=== PATIENT | male | born 1980 | race Hispanic/Latino ===

== ENCOUNTER 2018-02-22 13:37 | Inpatient (IN) | payer BC ==
--- NOTE | 2018-02-22 15:00 | History and Physical Report ---
History of Present Illness Date of admission: 02/22/18 14:08 Chief complaint: I keep shaking, I feel terrible History of present illness: 37 YO Male with HTN, ETOH Withdrawl, Depression, Anxiety admitted directly to hospital medicine service for ETOH Withdrawl, and Benzodiazepine Withdrawl. Pt states that he has been binge drinking Vodka for the past 3 days with his last drink of ETOH was this morning. Pt also takes xanax repeatedly during his drinking binges. Pt states that his last dose of xanax was 2 days ago. Pt states that he has experienced the following symptoms for the past 1 day with worsening symptoms over the past 6 hours: subjective fever, shaky hands, tremors , sweating, restlessness, irritability, insomnia, headache, confusion, muscle stiffness, agitation, nausea, poor concentration, and feeling depressed. Pt seen and evaluated upon arrival and found to have symptoms consistent with ETOH Withdrawl, and Benzodiazepine Withdrawl. Pt admitted to medical floor for medical stabilization. Past History Past Medical History: hypertension, hyperlipidemia Past Surgical History: Other (Sinus surgery, panniculectomy) Social history: single, alcohol abuse. denies: smoking Family history: hypertension Medications and Allergies Allergies Allergy/AdvReac Type Severity Reaction Status Date / Time No Known Allergies Allergy Unverified 02/22/18 13:40 Review of Systems Constitutional: fever, poor appetite, daytime sleepiness, no weight loss, no weight gain Ears, nose, mouth and throat: no ear pain, no ear discharge, no tinnitis, no decreased hearing, no nose pain, no nasal congestion, no nasal discharge Cardiovascular: no chest pain, no orthopnea, no palpitations, no rapid/ irregular heart beat, no edema, no syncope Respiratory: no cough, no cough with sputum, no excessive sputum, no hemoptysis , no shortness of breath, no dyspnea on exertion Gastrointestinal: nausea, no abdominal pain, no diarrhea, no constipation, no change in bowel habits, no hematemesis, no BRBPR, no melena Genitourinary Male: no dysuria, no flank pain, no discharge, no urinary frequency, no urinary hesitancy Rectal: no pain, no incontinence, no bleeding Musculoskeletal: no neck stiffness, no neck pain, no shooting arm pain, no arm numbness/tingling, no low back pain, no shooting leg pain, no leg numbness/ tingling Integumentary: no rash, no pruritis, no redness, no sores, no wounds, no jaundice Neurological: no head injury, no transient paralysis, no paralysis, no parathesias, no numbness, no tingling, no seizures Psychiatric: anxiety, change in sleep habits, sleep disturbances, insomnia, change in appetite, change in libido, depression, hopelessness, anxiety attacks , difficulties concentrating, confusion, irritability, sadness/tearfullness, mood swings, no memory loss Endocrine: no cold intolerance, no heat intolerance, no polyphagia, no excessive thirst, no polydipsia, no polyuria, no nocturia Hematologic/Lymphatic: no easy bruising, no easy bleeding Allergic/Immunologic: no urticaria, no allergic rhinitis, no wheezing, no persistent infections, no anaphylaxis, no angioedema Exam - Constitutional Vitals: Temp Pulse Resp BP Pulse Ox 98.7 F 113 H 20 126/76 94 02/22/18 14:21 02/22/18 14:21 02/22/18 14:21 02/22/18 14:21 02/22/18 14:21 General appearance: Present: mild distress, disheveled - EENT Eyes: Present: PERRL, miosis ENT: hearing intact, clear oral mucosa - Neck Neck: Present: supple, normal ROM - Respiratory Respiratory effort: normal Respiratory: bilateral: CTA - Cardiovascular Rhythm: other (tachycardia) Heart Sounds: Present: S1 & S2. Absent: rub, click - Extremities Extremities: pulses symmetrical, No edema Peripheral Pulses: within normal limits - Abdominal General gastrointestinal: Present: soft, non-tender, non-distended, normal bowel sounds Male genitourinary: Present: normal - Integumentary Integumentary: Present: clear, warm, dry - Musculoskeletal Musculoskeletal: generalized weakness - Psychiatric Psychiatric: appropriate mood/affect, intact judgment & insight, agitated, depressed - Neurologic Neurologic: CNII-XII intact, moves all extremities Assessment and Plan - Patient Problems (1) Alcohol withdrawal Current Visit: Yes Status: Acute Qualifiers: Complication of substance-induced condition: with perceptual disturbance Qualified Code(s): F10.232 - Alcohol dependence with withdrawal with perceptual disturbance Plan to address problem: thiamine, Folic Acid, Multivitamin, seizure precautions, supportive care, IVF resuscitation, CBC, CMP, Urinalysis, ETOH level, Urine Drug screen. (2) Benzodiazepine withdrawal with perceptual disturbance Current Visit: Yes Status: Acute Plan to address problem: Librium therapy, neuro checks, supportive care. (3) HTN (hypertension) Current Visit: Yes Status: Acute Qualifiers: Hypertension type: essential hypertension Qualified Code(s): I10 - Essential (primary) hypertension Plan to address problem: monitor bp q shift, supportive care. (4) Depressed bipolar disorder Current Visit: Yes Status: Acute Plan to address problem: Psychiatry consulted. continue current care. (5) DVT prophylaxis Current Visit: Yes Status: Acute Plan to address problem: SCD to BLE
[2018-02-22] MEDS ORDERED: ZOFRAN IV PRN (15:22)
[2018-02-22] MEDS: ATIVAN IV PRN ×4 (15:33→23:42)
[2018-02-22] MEDS: LIBRIUM PO SCH ×2 (15:33→21:41)
[2018-02-22 15:55] LABS: Basophils # (Auto) 0.1 K/mm3 (0.0-0.1); Basophils % (Auto) 1.3 % (0.0-1.8); Eosinophils % (Auto) 0.5 % (0.0-4.3); Hematocrit 46.7 % (35.5-45.6); Hemoglobin 15.9 gm/dl (11.8-15.2); Lymphocytes # (Auto) 2.9 K/mm3 (1.2-5.4); Lymphocytes % (Auto) 36.2 % (13.4-35.0); Mean Corpuscular HGB Conc 34 % (32-34); Mean Corpuscular Hemoglobin 30 pg (28-32); Mean Corpuscular Volume 87 fl (84-94); Monocytes # (Auto) 0.9 K/mm3 (0.0-0.8); Monocytes % (Auto) 11.3 % (0.0-7.3); Platelet Count 351 K/mm3 (140-440); Red Blood Count 5.35 M/mm3 (3.65-5.03); Red Cell Distribution Width 14.5 % (13.2-15.2)
[2018-02-22 16:06] LABS: INR 0.88 (0.87-1.13)
[2018-02-22 16:08] LABS: Lipase 69 units/L (13-60)
[2018-02-22 16:24] LABS: Alanine Aminotransferase 70 units/L (7-56); Albumin 4.4 g/dL (3.9-5); BUN/Creatinine Ratio 10; Blood Urea Nitrogen 10 mg/dL (9-20); Calcium 8.9 mg/dL (8.4-10.2); Hemolysis Index 10
[2018-02-22] MEDS ORDERED: ALUM-MAG HYDROX-SIMETH 200-200-20MG/5ML PO PRN (16:24)
[2018-02-22] MEDS ORDERED: SENOKOT PO PRN (16:24)
[2018-02-22] MEDS ORDERED: VITAMIN B-1 100 MG, FOLVITE 1 MG, INFUVITE 10 ML in NACL 0.9% 1000 ML 1,000 ML IV ONE (17:00)
[2018-02-22] MEDS: NEURONTIN PO SCH ×2 (17:04→21:41)
[2018-02-22 22:01] LABS: Bilirubin,Urine NEG (Negative); Blood,Urine NEG (Negative); Color,Urine Yellow (Yellow); Protein,Urine <15 mg/dL mg/dL (Negative)
[2018-02-22 22:18] LABS: Amphetamine Screen,Urine PRESUMPTIVE NEGATIVE; Benzodiazepines Screen,Urine PRESUMPTIVE NEGATIVE; Cannabinoid Screen,Urine PRESUMPTIVE NEGATIVE; Cocaine Screen,Urine PRESUMPTIVE NEGATIVE; Methadone Screen,Urine PRESUMPTIVE NEGATIVE; Opiate Screen,Urine PRESUMPTIVE NEGATIVE
[2018-02-23] MEDS: DESYREL PO SCH ×4 (02:21→23:26)
[2018-02-23] MEDS: LIBRIUM PO SCH ×3 (03:08→17:35)
[2018-02-23] MEDS: ATIVAN IV PRN ×8 (03:54→20:47)
[2018-02-23] MEDS: NEURONTIN PO SCH ×3 (06:31→22:30)
[2018-02-23] MEDS ORDERED: FOLVITE PO SCH (10:00)
[2018-02-23] MEDS ORDERED: THERAGRAN Tab PO SCH (10:00)
[2018-02-23] MEDS ORDERED: VITAMIN B-1 PO SCH (10:00)
[2018-02-23] MEDS ORDERED: BENADRYL PO PRN (18:47)
--- NOTE | 2018-02-23 19:00 | Progress Note ---
Assessment and Plan Assessment and plan: 37 YO Male with HTN, ETOH Withdrawl, Depression, Anxiety admitted directly to hospital medicine service for ETOH Withdrawl, and Benzodiazepine Withdrawl. Pt states that he has been binge drinking Vodka for the past 3 days with his last drink of ETOH was this morning. Pt also takes xanax repeatedly during his drinking binges. Pt states that his last dose of xanax was 2 days ago. Pt states that he has experienced the following symptoms for the past 1 day with worsening symptoms over the past 6 hours: subjective fever, shaky hands, tremors , sweating, restlessness, irritability, insomnia, headache, confusion, muscle stiffness, agitation, nausea, poor concentration, and feeling depressed. Pt seen and evaluated upon arrival and found to have symptoms consistent with ETOH Withdrawl, and Benzodiazepine Withdrawl. Pt admitted to medical floor for medical stabilization. - Patient Problems (1) Alcohol withdrawal Current Visit: Yes Status: Acute Qualifiers: Complication of substance-induced condition: with perceptual disturbance Qualified Code(s): F10.232 - Alcohol dependence with withdrawal with perceptual disturbance Plan to address problem: Continue with the medical stabilization program patient appears to be improving. Discussed with extensive counseling 30 minutes life style modification she verbalized understanding. Also discussed post hospitalization care.. Thiamine, Folic Acid, Multivitamin, seizure precautions, supportive care , IVF resuscitation, CBC, CMP, Urinalysis, ETOH level, Urine Drug screen. (2) Benzodiazepine withdrawal with perceptual disturbance Current Visit: Yes Status: Acute Plan to address problem: Librium therapy, neuro checks, supportive care. (3) HTN (hypertension) Current Visit: Yes Status: Acute Qualifiers: Hypertension type: essential hypertension Qualified Code(s): I10 - Essential (primary) hypertension Plan to address problem: monitor bp q shift, supportive care. (4) insomnia Continue trazodone. Also had mild dose of Benadryl. (5)Depressed bipolar disorder Current Visit: Yes Status: Acute Plan to address problem: Psychiatry outpatient. continue current care. (6) DVT prophylaxis Current Visit: Yes Status: Acute Plan to address problem: SCD to BLE History Interval history: Seen and examined this morning no acute distress reports some improvement in tremors. He reports inability to sleep last night.According to his history takes about 150 mg of Benadryl and Xanax to be able to sleep at night. Hospitalist Physical - Physical exam Narrative exam: VITAL SIGNS: Reviewed. GENERAL: The patient appeared well nourished and normally developed. Vital signs as documented. HEAD: No signs of head trauma. EYES: Pupils are equal. Extraocular motions intact. EARS: Hearing grossly intact. MOUTH: Oropharynx is normal. NECK: No adenopathy, no JVD. CHEST: Chest with clear breath sounds bilaterally. No wheezes, rales, or rhonchi. CARDIAC: Regular rate and rhythm. S1 and S2, without murmurs, gallops, or rubs. VASCULAR: No Edema. Peripheral pulses normal and equal in all extremities. ABDOMEN: Soft, without detectable tenderness. No sign of distention. No rebound or guarding, and no masses palpated. Bowel Sounds normal. MUSCULOSKELETAL: Good range of motion of all major joints. Extremities without clubbing, cyanosis or edema. NEUROLOGIC EXAM: Alert and oriented x 3. No focal sensory or strength deficits. Speech normal. Follows commands. PSYCHIATRIC: Mood normal. SKIN: Bilateral upper extremity tattoos - Constitutional Vitals: Temp Pulse Resp BP Pulse Ox 98.5 F 97 H 20 127/71 94 02/23/18 10:19 02/23/18 10:19 02/23/18 10:19 02/23/18 10:19 02/23/18 10:19 General appearance: Present: mild distress, disheveled Results - Labs CBC & Chem 7: 02/22/18 15:36 02/22/18 15:36 Labs: Laboratory Last Values WBC 8.0 K/mm3 (4.5-11.0) 02/22/18 15:36 RBC 5.35 M/mm3 (3.65-5.03) H 02/22/18 15:36 Hgb 15.9 gm/dl (11.8-15.2) H 02/22/18 15:36 Hct 46.7 % (35.5-45.6) H 02/22/18 15:36 MCV 87 fl (84-94) 02/22/18 15:36 MCH 30 pg (28-32) 02/22/18 15:36 MCHC 34 % (32-34) 02/22/18 15:36 RDW 14.5 % (13.2-15.2) 02/22/18 15:36 Plt Count 351 K/mm3 (140-440) 02/22/18 15:36 Lymph % (Auto) 36.2 % (13.4-35.0) H 02/22/18 15:36 [place] % (Auto) 11.3 % (0.0-7.3) H 02/22/18 15:36 Eos % (Auto) 0.5 % (0.0-4.3) 02/22/18 15:36 Baso % (Auto) 1.3 % (0.0-1.8) 02/22/18 15:36 Lymph # 2.9 K/mm3 (1.2-5.4) 02/22/18 15:36 [place] # 0.9 K/mm3 (0.0-0.8) H 02/22/18 15:36 Eos # 0.0 K/mm3 (0.0-0.4) 02/22/18 15:36 Baso # 0.1 K/mm3 (0.0-0.1) 02/22/18 15:36 Seg Neutrophils % 50.7 % (40.0-70.0) 02/22/18 15:36 Seg Neutrophils # 4.0 K/mm3 (1.8-7.7) 02/22/18 15:36 PT 12.4 Sec. (12.2-14.9) 02/22/18 15:42 INR 0.88 (0.87-1.13) 02/22/18 15:42 Sodium 143 mmol/L (137-145) 02/22/18 15:36 Potassium 4.2 mmol/L (3.6-5.0) 02/22/18 15:36 Chloride 102.4 mmol/L (98-107) 02/22/18 15:36 Carbon Dioxide 25 mmol/L (22-30) 02/22/18 15:36 Anion Gap 20 mmol/L 02/22/18 15:36 BUN 10 mg/dL (9-20) 02/22/18 15:36 Creatinine 1.0 mg/dL (0.8-1.5) 02/22/18 15:36 Estimated GFR > 60 ml/min 02/22/18 15:36 BUN/Creatinine Ratio 10 % 02/22/18 15:36 Glucose 100 mg/dL (75-100) 02/22/18 15:36 Calcium 8.9 mg/dL (8.4-10.2) 02/22/18 15:36 Total Bilirubin < 0.20 mg/dL (0.1-1.2) 02/22/18 15:36 AST 67 units/L (5-40) H 02/22/18 15:36 ALT 70 units/L (7-56) H 02/22/18 15:36 Alkaline Phosphatase 93 units/L (35-129) 02/22/18 15:36 Total Protein 7.3 g/dL (6.3-8.2) 02/22/18 15:36 Albumin 4.4 g/dL (3.9-5) 02/22/18 15:36 Albumin/Globulin Ratio 1.5 % 02/22/18 15:36 Amylase 107 units/L (27-131) 02/22/18 15:36 Lipase 69 units/L (13-60) H 02/22/18 15:36 Urine Color Yellow (Yellow) 02/22/18 Unknown Urine Turbidity Clear (Clear) 02/22/18 Unknown Urine pH 7.0 (5.0-7.0) 02/22/18 Unknown Ur Specific [place] 1.020 (1.003-1.030) 02/22/18 Unknown Urine Protein <15 mg/dl mg/dL (Negative) 02/22/18 Unknown Urine Glucose (UA) Neg mg/dL (Negative) 02/22/18 Unknown Urine Ketones Tr mg/dL (Negative) 02/22/18 Unknown Urine Blood Neg (Negative) 02/22/18 Unknown Urine Nitrite Neg (Negative) 02/22/18 Unknown Urine Bilirubin Neg (Negative) 02/22/18 Unknown Urine Urobilinogen 2.0 mg/dL (<2.0) 02/22/18 Unknown Ur Leukocyte Esterase Neg (Negative) 02/22/18 Unknown Urine WBC (Auto) 1.0 /HPF (0.0-6.0) 02/22/18 Unknown Urine RBC (Auto) 1.0 /HPF (0.0-6.0) 02/22/18 Unknown U Epithel Cells (Auto) < 1.0 /HPF (0-13.0) 02/22/18 Unknown Urine Opiates Screen Presumptive negative 02/22/18 Unknown Urine Methadone Screen Presumptive negative 02/22/18 Unknown Ur Barbiturates Screen Presumptive negative 02/22/18 Unknown Ur Phencyclidine Scrn Presumptive negative 02/22/18 Unknown Ur Amphetamines Screen Presumptive negative 02/22/18 Unknown U Benzodiazepines Scrn Presumptive negative 02/22/18 Unknown Urine Cocaine Screen Presumptive negative 02/22/18 Unknown U Marijuana (THC) Screen Presumptive negative 02/22/18 Unknown Drugs of Abuse Note Disclamer 02/22/18 Unknown Plasma/Serum Alcohol 0.24 % (0-0.07) H 02/22/18 15:42
[2018-02-24] MEDS: LIBRIUM PO SCH (01:40)
[2018-02-24] MEDS: ATIVAN IV PRN (02:00)
[2018-02-24 07:17] VITALS: BP 136/82
[2018-02-24] MEDS: NEURONTIN PO SCH (07:39)
--- NOTE | 2018-02-24 08:15 | Discharge Summary ---
Providers - Providers Date of Admission: 02/22/18 14:08 Attending physician: GIOVANI PÉREZ MD 02/22/18 15:43 psychiatry consult [Consult to Mental Health] [CONS] Urgent Reason For Exam: major depression Place consult to:: Annie Notified:: today Phone number called:: [phone] If yes, spoke with:: annie Time called:: 15:41 Primary care physician: EVA CHISHOLM Hospitalization Reason for admission: medical stabilization Hospital course: 37 YO Male with HTN, ETOH Withdrawl, Depression, Anxiety who presented to the hospital with complaint of mild fever subjective fever, tremors and sweats and concern for alcohol withdrawal also with severe insomnia. Patient does also report nausea with poor concentration. The patient has been binge drinking on Vodka for the past 3 days with his last drink of ETOH was this morning. Pt also takes xanax repeatedly during his drinking binges. Pt states that his last dose of xanax was 2 days ago. Pt states that he has experienced the following symptoms for the past 1 day with worsening symptoms over the past 6 hours: subjective fever, shaky hands, tremors, sweating, restlessness, irritability, insomnia, headache, confusion, muscle stiffness, agitation, nausea, poor concentration, and feeling depressed. Pt seen and evaluated upon arrival and found to have symptoms consistent with ETOH Withdrawl, and Benzodiazepine Withdrawl. Pt admitted to medical floor for medical stabilization according to the progressive by nutrition service. Her admission was noted to have a mildly elevated AST and ALT 67 and 70 respectively with a lipase 69 but no abdominal pain. Alcohol was 0.24. Patient was seen and examined daily with full resolution of symptoms including improvement of insomnia. He is currently stable and is discharged in good and stable condition. And advised referral to nutrition plan. His most to follow up with his primary care physician within 30 days. Patient verbalized understanding with also recommendation to follow with psychiatrist outpatient. He refused most medications on his last day of stay.. Discharge diagnoses (1) acute Alcohol withdrawal (2) Benzodiazepine withdrawal with perceptual disturbance (3) HTN (hypertension) (4) insomnia (5)Depressed bipolar disorder Disposition: DC-01 TO HOME OR SELFCARE Time spent for discharge: 35 mins Core Measure Documentation - Palliative Care Palliative Care/ Comfort Measures: Not Applicable - Core Measures Any of the following diagnoses?: none - VTE Discharge Requirements Deep Vein Thrombosis/Pulmonary Embolism Present on Admission: No Exam - Physical Exam Narrative exam: VITAL SIGNS: Reviewed. GENERAL: The patient appeared well nourished and normally developed. Vital signs as documented. HEAD: No signs of head trauma. EYES: Pupils are equal. Extraocular motions intact. EARS: Hearing grossly intact. MOUTH: Oropharynx is normal. NECK: No adenopathy, no JVD. CHEST: Chest with clear breath sounds bilaterally. No wheezes, rales, or rhonchi. CARDIAC: Regular rate and rhythm. S1 and S2, without murmurs, gallops, or rubs. VASCULAR: No Edema. Peripheral pulses normal and equal in all extremities. ABDOMEN: Soft, without detectable tenderness. No sign of distention. No rebound or guarding, and no masses palpated. Bowel Sounds normal. MUSCULOSKELETAL: Good range of motion of all major joints. Extremities without clubbing, cyanosis or edema. NEUROLOGIC EXAM: Alert and oriented x 3. No focal sensory or strength deficits. Speech normal. Follows commands. PSYCHIATRIC: Mood normal. SKIN: Bilateral upper extremity tattoos - Constitutional Vitals: Temp Pulse Resp BP Pulse Ox 98.9 F 92 H 20 136/82 98 02/24/18 06:38 02/24/18 06:38 02/24/18 06:38 02/24/18 06:38 02/24/18 06:38 Plan Activity: advance as tolerated, fall precautions Diet: regular Special Instructions: other (MUST FOLLOW WITH OUTPATIENT INTENSIVE PROGRAM) Follow up with: EVA CHISHOLM MD [Primary Care Provider] - 7 Days Prescriptions: Folic Acid [Folvite] 1 mg PO DAILY #30 tablet Multivitamin Tab [Multiple Vitamin TAB (Theragran)] 1 each PO DAILY #30 tablet Thiamine [Vitamin B-1] 100 mg PO QDAY #30 tablet
[2018-02-24] MEDS ORDERED: LIBRIUM PO SCH (18:00)
== END 2018-02-24 09:00 | disposition home or self-care (01) | DRG 897 ==
LOC: UNDOADMOB 13:37 → 2B-ACE 13:37 → PREOBSVTOIN 13:48 → 2B-ACE 14:08
PROVIDERS: ADMIT Internal Medicine; ATTEND Internal Medicine
DX: F10.232 Alcohol dependence with withdrawal with perceptual disturbance (principal); F31.30 Bipolar disorder, current episode depressed, mild or moderate severity, unspecified; F13.232 Sedative, hypnotic or anxiolytic dependence with withdrawal with perceptual disturbance; I10 Essential (primary) hypertension; F41.9 Anxiety disorder, unspecified; Z82.49 Family history of ischemic heart disease and other diseases of the circulatory system; Y92.9 Unspecified place or not applicable; Y90.1 Blood alcohol level of 20-39 mg/100 ml
CPT/HCPCS: 36415; 80053; 80307; 80320; 81001; 82150; 83690; 85025; 85610; G0480; J2060; J3411; J7030